=== PATIENT | female | born 1990 | race Caucasian/White ===

== ENCOUNTER 2021-06-11 17:34 | Emergency (ER) | payer OTHER, MEDICAID ==
[~2021-06-11] VITALS: Ht 170.2 cm; Wt 73.0 kg
[2021-06-11] MEDS ORDERED: MEDROLDOSEPACK PO (18:25)
[2021-06-11] MEDS ORDERED: PROAIR HFA8.5 GM INH (18:25)
[2021-06-11 18:42] VITALS: BP 122/75
== END 2021-06-11 18:44 | disposition home or self-care (01) ==
LOC: M.ERS 17:34 → EDBD 17:34 → M.ERS 18:44
DX: U07.1 COVID-19 (principal)